=== PATIENT | female | born 1955 | race Hispanic/Latino ===

== ENCOUNTER 2019-12-26 17:46 | Inpatient (IN) | payer SELFPAY ==
[~2019-12-26] VITALS: Ht 165.1 cm; Wt 78.5 kg
[2019-12-26 18:14] LABS: BASOPHILS % (AUTO) 0.1 % (0.0-5.0); HEMATOCRIT 37.7 % (36-48); LYMPHOCYTES % (AUTO) 10.8 % (21.0-51.0); MEAN CORPUSCULAR HEMOGLOBIN 29.9 pg (27.0-33.0); MEAN CORPUSCULAR HGB CONC 32.6 g/dL (32.0-36.0); MEAN CORPUSCULAR VOLUME 91.5 fL (79-99); MONOCYTES % (AUTO) 4.3 % (3.0-13.0); NEUTROPHILS % (AUTO) 84.3 % (40.0-77.0); PLATELET COUNT (AUTO) 292 K/uL (130-400); RED BLOOD CELL COUNT(AUTO) 4.12 MIL/uL (4.00-5.50); RED CELL DISTRIBUTION WIDTH 14.9 % (11.0-15.5)
[2019-12-26 18:31] LABS: ALBUMIN 3.7 g/dL (3.5-5.0); BILIRUBIN,TOTAL 0.5 mg/dL (0.2-1.0); TOTAL PROTEIN, SERUM 6.9 g/dL (6.0-8.3)
[2019-12-26 18:37] LABS: CREATINE KINASE, TOTAL 49 U/L (21-232); MYOGLOBIN 55 ng/mL (10-92); TROPONIN I < 0.04 ng/mL (0.00-0.06)
[2019-12-26] MEDS: SODIUM CHLORIDE 0.9% 1000ML 1,000 ML IV SCH (21:35)
[2019-12-26] MEDS ORDERED: MORPHINE SULFATE 4 MG/1ML SYG ONE (21:42)
[2019-12-26] MEDS ORDERED: ONDANSETRON HCL 4 MG/2 ML VIAL IV PRN (21:45)
[2019-12-26] MEDS ORDERED: ACETAMINOPHEN 325 MG TAB PO PRN ×2 (21:45)
[2019-12-26] MEDS ORDERED: LACTULOSE 20 GM/30 ML UDCUP PO PRN (21:45)
[2019-12-26] MEDS ORDERED: HYDRALAZINE HCL 20 MG/ML VIAL IV PRN (21:45)
[2019-12-26] MEDS ORDERED: SODIUM CHLORIDE 0.9% 1000ML 1,000 ML IV ONE (21:58)
[2019-12-26 22:25] LABS: INR 0.92 (0.85-1.15)
[2019-12-27] MEDS ORDERED: LIDOCAINE HCL-MPF 1% 2ML VIAL ONE (02:45)
[2019-12-27] MEDS ORDERED: POTASSIUM CHLORIDE 20MEQ/100ML 100 ML IV ONE (02:46)
[2019-12-27 02:50] VITALS: BP 151/77
--- NOTE | 2019-12-27 02:50 | NUR ---
ADMISSION NOTE: Admitted to floor via stretcher. Placed in bed comfortably. AOX4. VS checked and recorded. Assessment done. ( see CPOE flow chart for full assessment). Pt indep of ADL's as verbalized. Oriented to floor and use of call light. Policies and procedures explained. Agreed and verbalized understanding. Has PIV site to RAC #20g - patent and intact with NS1L at 100 ml/hr with side drip of potassium. Tele attached at with SR result. Cast applied to rt lower leg noted. As per ER staff report, Tom JIMENEZ aware of the consult. Maintained on bedrest and NPO as ordered. Kept monitored and watched for any unusualities. Needs attended and cared for. No apparent distress noted. Intermittent sharp pain noted to rt lower ankle at this time.
[2019-12-27] MEDS ORDERED: LISI-613 PO (03:08)
[2019-12-27] MEDS: MORPHINE SULFATE 2 MG/ML 1ML SYG IV PRN ×4 (03:58→20:05)
[2019-12-27 05:10] LABS: BASOPHILS % (AUTO) 0.3 % (0.0-5.0); EOSINOPHILS % (AUTO) 0.1 % (0.0-8.0); HEMATOCRIT 34.3 % (36-48); LYMPHOCYTES % (AUTO) 9.4 % (21.0-51.0); MEAN CORPUSCULAR HEMOGLOBIN 29.9 pg (27.0-33.0); MEAN CORPUSCULAR HGB CONC 32.7 g/dL (32.0-36.0); MEAN CORPUSCULAR VOLUME 91.5 fL (79-99); MONOCYTES % (AUTO) 7.5 % (3.0-13.0); NEUTROPHILS % (AUTO) 82.3 % (40.0-77.0); PLATELET COUNT (AUTO) 241 K/uL (130-400); RED BLOOD CELL COUNT(AUTO) 3.75 MIL/uL (4.00-5.50); WHITE BLOOD COUNT (AUTO) 7.3 K/uL (4.8-10.8)
[2019-12-27 05:25] LABS: CREATININE 0.6 mg/dL (0.5-1.5); MAGNESIUM 1.9 mg/dL (1.80-2.40); POTASSIUM 3.5 mmol/L (3.5-5.1)
[2019-12-27 08:00] VITALS: BP 133/77
[2019-12-27] MEDS: SODIUM CHLORIDE 0.9% 1000ML 1,000 ML IV SCH (09:44)
[2019-12-27] MEDS: POTASSIUM CHLORIDE 10MEQ/100ML 100 ML IV PRN (09:46)
[2019-12-27] MEDS: LIDOCAINE HCL-MPF 1% 2ML VIAL IV PRN (09:46)
[2019-12-27] MEDS: FAMOTIDINE/PF 20 MG/2 ML VIAL IV SCH (09:47)
[2019-12-27 11:00] VITALS: BP 144/86
[2019-12-27 12:02] LABS: APPEARANCE,URINE Clear (CLEAR); BILIRUBIN,URINE Negative (NEGATIVE); COLOR,URINE Yellow (YELLOW); GLUCOSE, URINE (UA) Negative (NEGATIVE); KETONES,URINE Negative (NEGATIVE); LEUKOCYTE ESTERASE ,URINE Negative (NEGATIVE); NITRATE,URINE Negative (NEGATIVE); OCCULT BLOOD,URINE Negative (NEGATIVE); PROTEIN,URINE Negative (NEGATIVE)
--- NOTE | 2019-12-27 13:30 | NUR ---
MET WITH PATIENT FOR DISCHARGE PLANNING STATES LVIES WITH SON ELENA JONES. FACE SHEET NAME AND PHONE NUMBER UPDATE/FAXED STATES NOT DISABLED, RETIRED, STATES NO PHYSICAL LIMITATIONS PRIOR TO THE FALL/FRACTURE- DRIVES, USES NO DME, HAS 2 STEPS UP TO [place]- STATES HAS A WALKER SHE CAN USE IF NEEDED. PMD IS DR. MORTON. UNFUNDED, NO HH PLANNED. . [employer] PKT GIVEN TO RN/PLACE DIN CHART FOR DISCHARGE CM TO FOLLOW Addendum: 12/30/19 at 0826 by EDITH DU RN CM Amended: Links added.
[2019-12-27 16:00] VITALS: BP 142/83
[2019-12-27] MEDS: ENOXAPARIN SODIUM 40 MG/0.4 ML SYRINGE SQ SCH (18:29)
[2019-12-27 20:00] VITALS: BP 165/86
[2019-12-27 21:30] VITALS: BP 151/86
[2019-12-28] VITALS (7 sets, daily range): BP systolic 128–163; BP diastolic 70–89
[2019-12-28] MEDS: MORPHINE SULFATE 2 MG/ML 1ML SYG IV PRN ×5 (00:49→20:10)
[2019-12-28] MEDS: SODIUM CHLORIDE 0.9% 1000ML 1,000 ML IV SCH ×2 (03:35→15:19)
[2019-12-28 05:54] LABS: CREATININE 0.7 mg/dL (0.5-1.5); MAGNESIUM 1.8 mg/dL (1.80-2.40); POTASSIUM 3.6 mmol/L (3.5-5.1)
[2019-12-28] MEDS ORDERED: MAGNESIUM 2GM PREMIX 50ML 50 ML IV PRN (09:15)
[2019-12-28] MEDS ORDERED: POTASSIUM CHLORIDE 20 MEQ ERTAB PO SCH (10:45)
[2019-12-28] MEDS: FAMOTIDINE/PF 20 MG/2 ML VIAL IV SCH (10:49)
[2019-12-28] MEDS: ENOXAPARIN SODIUM 40 MG/0.4 ML SYRINGE SQ SCH (10:51)
--- NOTE | 2019-12-28 15:49 | NUR ---
cm note met with patient and discussed dc planning, Per PT, states patient is nonwt bearing to affected leg, and will require assistance due to unable to walker only pivot and transfer at this time. with max assist. PT to evaluate and teach pt transfers, spoke to pt and informed of probable need for w/c , walker. states will speak to her son about dme. needs. and work with PT. updated dr Mayers. pt is non funded, and provided area agency on aging information for possible provider assistance.
[2019-12-28] MEDS: LIDOCAINE HCL-MPF 1% 2ML VIAL IV PRN (20:12)
[2019-12-28] MEDS: POTASSIUM CHLORIDE 10MEQ/100ML 100 ML IV PRN (20:12)
[2019-12-29 00:09] VITALS: BP 141/77
[2019-12-29 04:26] VITALS: BP 147/78
[2019-12-29] MEDS: MORPHINE SULFATE 2 MG/ML 1ML SYG IV PRN ×3 (05:13→23:06)
[2019-12-29] MEDS: SODIUM CHLORIDE 0.9% 1000ML 1,000 ML IV SCH (05:14)
[2019-12-29 05:59] LABS: BASOPHILS % (AUTO) 0.2 % (0.0-5.0); EOSINOPHILS % (AUTO) 0.2 % (0.0-8.0); HEMATOCRIT 34.5 % (36-48); LYMPHOCYTES % (AUTO) 17.2 % (21.0-51.0); MEAN CORPUSCULAR HEMOGLOBIN 29.4 pg (27.0-33.0); MEAN CORPUSCULAR HGB CONC 31.9 g/dL (32.0-36.0); MEAN CORPUSCULAR VOLUME 92.2 fL (79-99); MONOCYTES % (AUTO) 9.5 % (3.0-13.0); NEUTROPHILS % (AUTO) 72.7 % (40.0-77.0); PLATELET COUNT (AUTO) 234 K/uL (130-400); RED BLOOD CELL COUNT(AUTO) 3.74 MIL/uL (4.00-5.50); RED CELL DISTRIBUTION WIDTH 14.8 % (11.0-15.5); WHITE BLOOD COUNT (AUTO) 6.1 K/uL (4.8-10.8)
[2019-12-29 06:35] LABS: CREATININE 0.8 mg/dL (0.5-1.5); MAGNESIUM 2.1 mg/dL (1.80-2.40); POTASSIUM 4.3 mmol/L (3.5-5.1)
[2019-12-29 08:00] VITALS: BP 158/84
--- NOTE | 2019-12-29 09:00 | NUR ---
CM NOTE Met with patient and provided information with [place] quotes for w/c and walker from [employer], and [employer], for private pay rates, due to pt does not have insurance. pt states that she has spoke to her son, about obtaining a w/c, pt states she already has a walker at home.
[2019-12-29] MEDS ORDERED: LISINOPRIL 20 MG TABLET PO SCH (10:00)
[2019-12-29] MEDS: FAMOTIDINE/PF 20 MG/2 ML VIAL IV SCH (10:10)
[2019-12-29] MEDS: ENOXAPARIN SODIUM 40 MG/0.4 ML SYRINGE SQ SCH (10:11)
[2019-12-29 11:00] VITALS: BP 142/84
--- NOTE | 2019-12-29 11:40 | NUR ---
cm note discussed dc planning with pt and importance of followup with dr dsouza at [facility]. provided with resources in the community for followup at local clinics, and rx assist coupons, and located within [facility] agency on aging for possible assistance for dme needs. pt states that son has priced a w/c already and will be obtaining it for her and should have it ready for tomorrow. referral made to [facility] for possible medicaid assist. PT will continue to work with pt, and as per dr diaz will plan for possible dc tomorrow. pt verbalizes understanding.
[2019-12-29 16:00] VITALS: BP 134/88
[2019-12-29 22:02] VITALS: BP 126/81
[2019-12-30 01:06] VITALS: BP 126/76
[2019-12-30] MEDS: MORPHINE SULFATE 2 MG/ML 1ML SYG IV PRN ×2 (04:51→09:33)
[2019-12-30] MEDS: SODIUM CHLORIDE 0.9% 1000ML 1,000 ML IV SCH (05:35)
[2019-12-30 05:50] VITALS: BP 124/75
[2019-12-30 07:30] VITALS: BP 130/79
[2019-12-30] MEDS: FAMOTIDINE/PF 20 MG/2 ML VIAL IV SCH (09:33)
[2019-12-30] MEDS: ENOXAPARIN SODIUM 40 MG/0.4 ML SYRINGE SQ SCH (09:34)
--- NOTE | 2019-12-30 10:30 | NUR ---
SPOKE TO PATIENT AT BEDSIDE RE PLAN OF CARE STATES SHE HAS A RAMP, SHE HAS A WALKER, AND SHE HAS A WHEELCHAIR SHE CAN BORROW UNITL HER (PURCHSED) WHEELCHAIR IS DELIVERS. Addendum: 12/30/19 at 1333 by EDITH DU RN Amended: Links added.
[2019-12-30 10:55] VITALS: BP 132/77
[2019-12-30] MEDS ORDERED: ACET-2247 PO (14:59)
--- NOTE | 2019-12-30 16:24 | NUR ---
FOLLOW UP Dr Parker [phone] [facility] 01-27-20 at 2:20 Dr Santos [phone] 01-03-20 at 10:00 PRIMARY CARE self referral 2-3 days Addendum: 12/30/19 at 1630 by JONH ZUNIGA RN RN Amended: Links added.
== END 2019-12-30 16:55 | disposition home or self-care (01) | DRG 563 ==
LOC: EDH 17:46 → EDHIP 17:47 → 3BH 22:02
PROVIDERS: ADMIT Internal Medicine; ATTEND Internal Medicine
DX: S82.891A Other fracture of right lower leg, initial encounter for closed fracture (principal); I10 Essential (primary) hypertension; E87.6 Hypokalemia; W19.XXXA Unspecified fall, initial encounter; Y93.89 Activity, other specified; Y92.89 Other specified places as the place of occurrence of the external cause; Y99.8 Other external cause status; I25.2 Old myocardial infarction; Z98.84 Bariatric surgery status; Z90.49 Acquired absence of other specified parts of digestive tract; Z82.49 Family history of ischemic heart disease and other diseases of the circulatory system
CPT/HCPCS: 36415; 70450; 73610; 73620; 80048; 80053; 81003; 82550; 83735; 83874; 83880; 84484; 85025; 85610; 85730; 93005; 93306; 93356; 93880; 97039; G0378; J0360; J1650; J2270; J3475; J3480; J3490; J7030